=== PATIENT | male | born 1985 | race Caucasian/White ===

== ENCOUNTER 2024-10-20 16:39 | Emergency (ER) | payer OTHER ==
[~2024-10-20] VITALS: Ht 185.4 cm; Wt 103.0 kg
[2024-10-20 17:31] LABS: BASOPHILS % 0.5 % (0.0-1.0); HEMOGLOBIN 14.3 g/dL (14.0-18.0); LYMPHOCYTES # (AUTO) 0.8 (1.0-3.2); LYMPHOCYTES % 12.9 % (18.0-39.1); MEAN CORPUSCULAR HEMOGLOBIN 29.9 pg (28-32); MEAN CORPUSCULAR HGB CONC 35.8 g/dL (31-35); MEAN CORPUSCULAR VOLUME 83.5 fL (81-99); MONOCYTES # (AUTO) 0.2 (0.2-0.8); NEUTROPHILS # (AUTO) 4.7 (2.1-6.9); NEUTROPHILS % 80.4 % (38.7-80.0); PLATELET COUNT 70 x10e3/uL (140-360); RED BLOOD COUNT 4.79 x10e6/uL (4.3-5.7); RED CELL DISTRIBUTION WIDTH 13.1 % (11.7-14.4); WHITE BLOOD COUNT 5.81 x10e3/uL (4.8-10.8)
[2024-10-20] MEDS: KETOROLAC TROMETHAMINE 30 MG/ML VIAL IV STA (17:41)
[2024-10-20] MEDS: ACETAMINOPHEN 325 MG TAB PO ONE (17:42)
[2024-10-20] MEDS: LACTATED RINGER'S 1,000 ML INJ ONE (17:42)
[2024-10-20 17:51] LABS: STREPTOCOCCUS GRP A ANTIGEN NEGATIVE (NEGATIVE)
[2024-10-20 17:52] LABS: ALBUMIN 3.3 g/dL (3.5-5.0); ALBUMIN/GLOBULIN RATIO 1.4 (0.8-2.0); ANION GAP 15.4 mmol/L (8-16); BILIRUBIN,TOTAL 2.2 mg/dL (0.2-1.2); CALCIUM 8.9 mg/dL (8.4-10.2); CREATININE, SERUM 1.09 mg/dL (0.72-1.25); TOTAL PROTEIN 5.7 g/dL (6.5-8.1)
[2024-10-20] MEDS ORDERED: DOXYCYCLINE HY100 MG PO (17:54)
[2024-10-20 18:02] LABS: INFLUENZA A AG NEGATIVE (NEGATIVE); INFLUENZA B AG NEGATIVE (NEGATIVE)
[2024-10-20 18:04] LABS: CORONAVIRUS COVID-19 AG NEGATIVE (NEGATIVE)
[2024-10-20 18:30] LABS: POTASSIUM 3.4 mmol/L (3.5-5.1)
[2024-10-20] MEDS ORDERED: IOPAMIDOL 370 MG/ML 100 ML INFUS..BTL INJ ONE (18:40)
[2024-10-20 19:08] LABS: CLARITY,URINE HAZY (CLEAR); COLOR,URINE AMBER (YELLOW); GLUCOSE, URINE 1+ (NEGATIVE); KETONES,URINE TRACE (NEGATIVE); LEUKOCYTE ESTERASE ,URINE NEGATIVE (NEGATIVE); NITRITE,URINE NEGATIVE (NEGATIVE); PH,URINE 6 (5 - 7); PROTEIN,URINE DIPSTICK >=300 (NEGATIVE)
[2024-10-20 19:09] LABS: BILIRUBIN,URINE MODERATE (NEGATIVE); URINE UROBILINOGEN >=8 mg/dL (0.2 - 1)
[2024-10-20 19:26] LABS: PROTHROMBIN TIME 13.8 seconds (11.9-14.5)
[2024-10-20 19:27] LABS: PARTIAL THROMBOPLASTIN TIME 42.1 seconds (23.8-35.5)
[2024-10-20 19:42] LABS: AMPHETAMINES SCREEN,URINE NEGATIVE (NEGATIVE); OPIATES SCREEN,URINE NEGATIVE (NEGATIVE); PHENCYCLIDINE SCREEN,URINE NEGATIVE (NEGATIVE)
[2024-10-20 19:43] LABS: BENZODIAZEPINES SCREEN,URINE NEGATIVE (NEGATIVE); CANNABINOIDS SCREEN,URINE NEGATIVE (NEGATIVE); COCAINE SCREEN,URINE NEGATIVE (NEGATIVE); METHADONE SCREEN, URINE NEGATIVE (NEGATIVE)
[2024-10-20 20:13] VITALS: PULSE 97; RESP 22; TEMP 98.3
[2024-10-20 20:19] VITALS: BP 105/63; PULSE 97; RESP 22; TEMP 98.3; O2SAT 98
[2024-10-20] MEDS ORDERED: AZITHROMYCIN250 MG PO (20:25)
[2024-10-20 20:32] LABS: BACTERIA,URINE FEW /HPF; EPITHELIAL CELLS,URINE FEW /LPF; HYALINE CASTS 0-1 (0-1); WBC,URINE (MAN) 0-5 /HPF (0-5)
[2024-10-20 20:33] LABS: AMORPHOUS SEDIMENT,URINE MODERATE (FEW)
== END 2024-10-20 20:30 | disposition home or self-care (01) ==
LOC: ER 16:50
DX: R50.9 Fever, unspecified (principal); J06.9 Acute upper respiratory infection, unspecified; R74.01 Elevation of levels of liver transaminase levels; Z11.52 Encounter for screening for COVID-19; R94.31 Abnormal electrocardiogram [ECG] [EKG]
CPT/HCPCS: 36415; 71046; 74177; 80053; 80307; 80329; 81001; 83518; 83690; 83880; 84484; 85025; 85610; 85730; 87070; 87428; 93005; 99284; J1885; J7121; Q9967